=== PATIENT | female | born 1975 | race African-American/Black ===

== ENCOUNTER 2016-10-01 05:12 | Emergency (ER) | payer MEDICAID, OTHER ==
[2016-10-01] MEDS ORDERED: Gentamicin Ophth 0.3% Oint 3.5gm Tube ONE (05:35)
--- NOTE | 2016-10-01 05:43 | ED Physician Chart ---
Chief Complaint/HPI - Patient Information Date Seen:: 10/01/16 Time Seen:: 05:37 Chief Complaint:: left eye History of Present Illness:: THIS PATIENT WAS INJURED WITH A SPLASH A MONTH AGO WITH NO SYMPTOMS. SHE NOW RETURNS BECAUSE OF THE LEFT EYE BURNING. THE VISUAL ACUITY IS NOT AFFECTED. SHE HAS NO OTHER COMPLAINTS. I HAVE REVIEWED THE INITIAL INJURY RECORD. Allergies:: Allergies Allergy/AdvReac Type Severity Reaction Status Date / Time No Known Allergies Allergy Verified 10/01/16 05:23 Vitals:: Vital Signs - 8 hr 10/01/16 05:15 Temp 97.9 F HR 91 RR 18 BP 133/88 O2 Sat % 100 Historian:: Patient Review:: Nurse's Note Reviewed Review of Systems - Review of Systems General/Constitutional: No fever, No chills, No weight loss, No weakness, No diaphoresis, No edema, No loss of appetite Skin: No skin lesions, No rash, No bruising Head: No headache, No light-headedness Eyes: No loss of vision, No pain, No diplopia, Other (PINK ONLY) ENT: No earache, No nasal drainage, No sore throat, No tinnitus Neck: No neck pain, No swelling, No thyromegaly, No stiffness, No mass noted Cardio Vascular: No chest pain, No palpitations, No PND, No orthopnea, No edema Pulmonary: No SOB, No cough, No sputum, No wheezing GI: No nausea, No vomiting, No diarrhea, No pain, No melena, No hematochezia, No constipation, No hematemesis G/U: No dysuria, No frequency, No hematuria Musculoskeletal: No bone or joint pain, No back pain, No muscle pain Endocrine: No polyuria, No polydipsia Psychiatric: No prior psych history, No depression, No anxiety, No suicidal ideation Hematopoietic: No bruising, No lymphadenopathy Allergic/Immuno: No urticaria, No angioedema Neurological: No syncope, No focal symptoms, No weakness, No paresthesia, No headache, No seizure, No dizziness, No confusion, No vertigo Past Medical History - Past Medical History Obtainable: Yes Past Medical History: DM Family History: None Social History: Non Smoker, No Alcohol, No Drug Use Surgical History: None Psychiatricy History: None Medication: Reviewed Family Medical History - Family Member Mother History Unknown: Yes Ethnicity: Non- Living Status: Still Living Hx Family Diabetes: Yes Physical Exam - Physical Examination General/Constitutional: Awake, Well-developed, well-nourished, Alert, No distress, GCS 15, Non-toxic appearing, Ambulatory Head: Atraumatic Eyes: PERRL, EOMI Other Eyes comments:: THERE IS A MINIMAL AMOUNT OF PINKNESS IN THE LEFT CONJUNCTIVAE, ACUITY IS NORMAL WITH EYE GLASSES. THE FUNDI IS NORMAL, EMOS NORMAL. THERE IS NO LID SWELLING. Skin: Nl inspection, No rash, No skin lesions, No ecchymosis, Well hydrated, No lymphadenopathy ENMT: External ears, nose nl, Nasal exam nl, Lips, teeth, gums nl Neck: Nontender, Full ROM w/o pain, No JVD, No nuchal rigidity, No bruit, No mass, No stridor Respiratory: Nl effort/Exclusion, Clear to Auscultation, No Wheeze/Rhonchi/Rales Cardio Vascular: RRR, No murmur, gallop, rubs, NL S1 S2 GI: No tenderness/rebounding/guarding, No organomegaly, No hernia, Normal BS's, Nondistended, No mass/bruits, No McBurney tenderness : No CVA tenderness Extremities: No tenderness or effusion, Full ROM, normal strength in all extremities, No edema, Normal digits & nails Neuro/Psych: Alert/oriented, DTR's symmetric, Normal sensory exam, Normal motor strength, Judgement/insight normal, Mood normal, Normal gait, No focal deficits Misc: normal gait, Normal back, No paraspinal tenderness Assessment - Assessment General Assessment: THE PATIENT WAS ADVISED TO FOLLOW UP WITH HER OPTHALMOLOGIST ON MONDAY SINCE SHE IS DIABETIC. ED Septic Shock - . Is Septic Shock (SBP<90, OR Lactate>4 mmol\L) present?: No - <6hrs of presentation: Vital Signs: Vital Signs - 8 hr 10/01/16 05:15 Temp 97.9 F HR 91 RR 18 BP 133/88 O2 Sat % 100 Reassessment (Disposition) - Reassessment Reassessment Condition:: Unchanged - Diagnosis Diagnosis:: LEFT EYE CONJUNCTIVITIS - Aftercare/Follow up Instructions Aftercare/Follow-Up Instructions:: Counseled pt regarding lab results/diagnosis & need follow up, Refer to Discharge Instructions, Counseled pt & family regarding lab results/diagnosis & need follow up - Patient Disposition Discharge/Transfer:: Home Condition at Disposition:: Unchanged ED Discharge Plan - Patient Disposition Admit/Discharge/Transfer: PT DISCHARGED HOME Condition at Disposition: Unchanged
== END 2016-10-01 05:50 | disposition home or self-care (01) ==
LOC: ER 05:12
DX: H10.9 Unspecified conjunctivitis (principal); E11.9 Type 2 diabetes mellitus without complications
CPT/HCPCS: Z7502

== ENCOUNTER 2016-10-15 00:21 | Outpatient (CLI) | payer OTHER ==
[2016-10-18 18:08] LABS: HEP B CORE AB TOTAL Negative (Negative); HEP B SURFACE AB QL Reactive; HEP C ANTIBODY <0.1 s/co ratio (0.0-0.9)
== END 2016-10-15 00:52 | disposition home or self-care (01) ==
LOC: EDSTATUS 00:26 → LAB 00:32
PROVIDERS: ATTEND Emergency Medicine
DX: Z77.21 Contact with and (suspected) exposure to potentially hazardous body fluids (principal)
CPT/HCPCS: 86704-90; 86706-90; 86803-90; 87340-90

== ENCOUNTER 2016-10-29 07:56 | Outpatient (CLI) | payer OTHER | END 2016-10-29 08:00 | disposition home or self-care (01) | LOC: LAB 07:56 | PROVIDERS: ATTEND Emergency Medicine | DX: Z77.21 Contact with and (suspected) exposure to potentially hazardous body fluids (principal) | CPT/HCPCS: 87389-90 ==

== ENCOUNTER 2018-07-03 11:57 | Outpatient (CLI) | payer OTHER ==
[2018-07-03 13:20] LABS: BUN - UREA NITROGEN 14 mg/dL (7-25); CALCIUM SERUM 9.3 mg/dL (8.6-10.3); CARBON DIOXIDE 23.7 mEq/L (21.0-31.0); CHLORIDE 96 mEq/L (98-107); CREATININE - SERUM 0.8 mg/dL (0.6-1.2); GFR AFRICAN-AMERICAN > 60.0 ml/min (>90); GFR NON AFRICAN-AMERICAN > 60.0 ml/min; POTASSIUM SERUM 3.7 mEq/L (3.5-5.1)
[2018-07-03 13:28] LABS: GLUCOSE 462 mg/dL (70-105)
[2018-07-03 13:29] LABS: SODIUM SERUM 131 mEq/L (136-145)
== END 2018-07-03 12:20 | disposition home or self-care (01) ==
LOC: LAB 11:57
DX: Z01.812 Encounter for preprocedural laboratory examination (principal)
CPT/HCPCS: 36415-UA; 80048-TC; 83036-90